=== PATIENT | female | born 1995 | race American Indian/Alaskan Native ===

== ENCOUNTER 2019-04-10 20:13 | Emergency (ER) | payer SELFPAY ==
[2019-04-10 20:21] VITALS: BP 126/74
[2019-04-10] MEDS ORDERED: ACETAMINOPHEN 500 MG TAB PO ONE (21:16)
[2019-04-10] MEDS ORDERED: predniSONE 20 MG TAB PO ONE (21:16)
[2019-04-10] MEDS ORDERED: IBUPROFEN 600 MG TAB PO ONE (21:16)
[2019-04-10] MEDS ORDERED: CLINDAMYCIN 300 MG CAP PO ONE (21:19)
--- NOTE | 2019-04-10 21:34 | Emergency Department Report ---
ED General Adult HPI - General Chief complaint: Dental/Oral Stated complaint: ABCESSED TOOTH Source: patient Mode of arrival: Ambulatory Limitations: No Limitations - History of Present Illness Initial comments: Patient is a 23 yo AA female who presents to the ED with c/o acute onset persistent severe painful swollen left mandibular gums with premolar and molar toothache x 2 days, worse in the last 12 hours. Patient states that she has been taking [id number] pain medication with no relief. Patient also states that she has had similar symptoms before and has previously taken penicillin or amoxicillin which helped resolve the swollen gums and toothache. Patient denies dizziness, fever, chills, nausea, vomiting, headache, chest pain, shortness of breath, change in vision, sore throat, headache or discharge in dysphonia. MD Complaint: left mandibular gum swelling and pain; dental pain -: Sudden, days(s) (2) Location: mouth Radiation: non-radiation Severity scale (0 -10): 8 Quality: aching, sharp, constant Consistency: constant Improves with: none Worsens with: eating Associated Symptoms: denies other symptoms. denies: confusion, chest pain, cough, diaphoresis, fever/chills, loss of appetite, malaise, nausea/vomiting, rash, seizure, shortness of breath, syncope, weakness Treatments Prior to Arrival: none - Related Data Previous Rx's Medication Instructions Recorded Last Taken Type Acetaminophen/Codeine [Tylenol 1 tab PO Q6H PRN #12 tab 04/10/19 Unknown Rx /Codeine # 3 tab] Clindamycin [Clindamycin CAP] 300 mg PO Q8HR #60 capsule 04/10/19 Unknown Rx Ketorolac [Toradol] 10 mg PO Q8H PRN #20 tablet 04/10/19 Unknown Rx ED Review of Systems ROS: Stated complaint: ABCESSED TOOTH Other details as noted in HPI Constitutional: denies: chills, fever Eyes: denies: eye pain, eye discharge, vision change ENT: dental pain (leftmandibular premolar and molar tootache; swollen painful gum). denies: ear pain, throat pain Respiratory: denies: cough, shortness of breath, wheezing Cardiovascular: denies: chest pain, palpitations Endocrine: no symptoms reported Gastrointestinal: denies: abdominal pain, nausea, diarrhea Genitourinary: denies: urgency, dysuria, discharge Musculoskeletal: denies: back pain, joint swelling, arthralgia Skin: denies: rash, lesions Neurological: denies: headache, weakness, paresthesias Psychiatric: denies: anxiety, depression Hematological/Lymphatic: denies: easy bleeding, easy bruising ED Past Medical Hx - Past Medical History Previous Medical History?: No - Surgical History Past Surgical History?: No - Social History Smoking Status: Never Smoker Substance Use Type: Alcohol - Medications Home Medications: Home Medications Medication Instructions Recorded Confirmed Last Taken Type Acetaminophen/Codeine [Tylenol 1 tab PO Q6H PRN #12 tab 04/10/19 Unknown Rx /Codeine # 3 tab] Clindamycin [Clindamycin CAP] 300 mg PO Q8HR #60 capsule 04/10/19 Unknown Rx Ketorolac [Toradol] 10 mg PO Q8H PRN #20 tablet 04/10/19 Unknown Rx ED Physical Exam - General Limitations: No Limitations General appearance: alert, in no apparent distress - Head Head exam: Present: atraumatic, normocephalic, normal inspection - Eye Eye exam: Present: normal appearance, PERRL, EOMI Pupils: Present: normal accommodation - ENT ENT exam: Present: mucous membranes moist, TM's normal bilaterally, normal external ear exam, other (Swollen tender left mandibular gum; severely tender premolar and molar teeth) - Neck Neck exam: Present: normal inspection, full ROM. Absent: tenderness, lymphadenopathy - Respiratory Respiratory exam: Present: normal lung sounds bilaterally. Absent: respiratory distress, wheezes, rales, rhonchi, chest wall tenderness, accessory muscle use, decreased breath sounds - Cardiovascular Cardiovascular Exam: Present: regular rate, normal rhythm, normal heart sounds. Absent: systolic murmur, diastolic murmur, rubs, gallop - GI/Abdominal GI/Abdominal exam: Present: soft, normal bowel sounds. Absent: tenderness, rigid, hyperactive bowel sounds, organomegaly, pulsatile mass - Extremities Exam Extremities exam: Present: normal inspection, full ROM, normal capillary refill - Back Exam Back exam: Present: normal inspection, full ROM. Absent: CVA tenderness (L), muscle spasm, paraspinal tenderness - Neurological Exam Neurological exam: Present: alert, oriented X3, CN II-XII intact, normal gait, reflexes normal - Psychiatric Psychiatric exam: Present: normal affect, normal mood - Skin Skin exam: Present: warm, dry, intact, normal color. Absent: rash ED Course Vital Signs 04/10/19 20:18 Temperature 98.6 F Pulse Rate 70 Respiratory 18 Rate Blood Pressure 126/74 O2 Sat by Pulse 100 Oximetry ED Medical Decision Making - Medical Decision Making This is a 23-year-old female with a history of recurrent dental abscesses and chronic gingivitis who presented to the ED with acute exacerbation of swollen left mandibular gums and severely painful premolar and molar teeth for the last 2 days. In the ED, patient is alert and oriented 3 and is not in distress with normal vital signs. Patient was treated for pain in the ED and given initial oral antibiotics. Patient was discharged home on antibiotics and pain medications and advised to follow-up with a dentist or primary care physician in 5-7 days for reevaluation. Patient was advised to return to the ED immediately if symptoms get worse. - Differential Diagnosis Gingivitis; Dental abscess; dental caries Critical care attestation.: If time is entered above; I have spent that time in minutes in the direct care of this critically ill patient, excluding procedure time. ED Disposition Clinical Impression: Dental abscess, Acute gingivitis, Dental caries Disposition: - TO HOME OR SELFCARE Is pt being admited?: No Does the pt Need Aspirin: No Condition: Stable Instructions: Gingivitis (ED), Dental Abscess (ED) Additional Instructions: Take medications with food, drink plenty fluids and follow-up with your primary care physician or dentist in 5-7 days for reevaluation or return to the ED immediately if symptoms get worse. Prescriptions: Clindamycin [Clindamycin CAP] 300 mg PO Q8HR #60 capsule Ketorolac [Toradol] 10 mg PO Q8H PRN #20 tablet PRN Reason: Pain Acetaminophen/Codeine [Tylenol /Codeine # 3 tab] 1 tab PO Q6H PRN #12 tab PRN Reason: Pain , Severe (7-10) Referrals: PRIMARY CARE,MD [Primary Care Provider] - 3-5 Days Time of Disposition: 21:36 Print Language: YI
== END 2019-04-10 22:20 | disposition home or self-care (01) ==
LOC: ED 20:13
DX: K04.7 Periapical abscess without sinus (principal); K05.00 Acute gingivitis, plaque induced; K02.9 Dental caries, unspecified; Z79.899 Other long term (current) drug therapy
CPT/HCPCS: 99282; J7512